=== PATIENT | female | born 1955 | race Caucasian/White ===

== ENCOUNTER → 2019-01-22 | Outpatient (CLI) | payer OTHER ==
[2014-10-31 16:25] VITALS: BP 131/75
[~2019-01-22] MED LIST: CLON0.5T PO; LEVO175T2 PO; LISI1TAB19 PO; ONDA4TAB10 PO; RANI-376 PO; SIMV40TA3 PO
--- NOTE | 2019-01-24 09:29 | RAD ---
DATE: 01/22/2019 EXAM: MAMMO HILDA SCREENING BILATERAL HISTORY: Routine screening COMPARISON: 07/14/2010, 06/27/2012, 01/21/2016 mammographic exams This study was interpreted with the benefit of Computerized Aided Detection (CAD). Breast Density: SCATTERED The breast parenchyma shows scattered fibroglandular densities. Breast parenchyma level B. FINDINGS: Small masses are present. These are stable. No new distortion, suspicious calcifications, or new masses. IMPRESSION: Stable BI-RADS CATEGORY: 1 NEGATIVE RECOMMENDED FOLLOW-UP: 12M 12 MONTH FOLLOW-UP PQRS compliance statement: Patient information was entered into a reminder system with a target due date in one year for the next mammogram. Mammography is a sensitive method for finding small breast cancers, but it does not detect them all and is not a substitute for careful clinical examination. A negative mammogram does not negate a clinically suspicious finding and should not result in delay in biopsying a clinically suspicious abnormality. "Our facility is accredited by the [employer] Mammography Program."
== END | disposition home or self-care (01) ==
LOC: MAMMO 13:18
PROVIDERS: ATTEND Family Medicine
DX: Z12.31 Encounter for screening mammogram for malignant neoplasm of breast (principal); N64.89 Other specified disorders of breast
CPT/HCPCS: 77063; 77067

== ENCOUNTER → 2019-10-06 | Outpatient (CLI) | payer OTHER ==
[2014-10-31 16:25] VITALS: BP 131/75
[~2019-10-06] MED LIST changes: +SIMV40TA18 PO; -SIMV40TA3 PO
--- NOTE | 2019-10-06 15:24 | RAD ---
EXAM: Bilateral knees, standing view; right knee, 2 views. HISTORY: Osteoarthritis. COMPARISON: None. FINDINGS: A standing frontal view both knees and lateral and sunrise views of the right knee are obtained. There is a right knee arthroplasty in expected position. There is a moderate right knee effusion and diffuse right knee soft tissue swelling. There is internal fixation of the left tibia, partially included on the [id number]. There is a healed proximal left fibular fracture. IMPRESSION: 1. Right knee arthroplasty in expected position. 2. Moderate right knee effusion and diffuse right knee soft tissue swelling. Electronically signed by: Jessica Paul MD (10/06/2019 3:21 PM) [facility]
--- NOTE | 2019-10-06 15:24 | RAD ---
EXAM: Bilateral knees, standing view; right knee, 2 views. HISTORY: Osteoarthritis. COMPARISON: None. FINDINGS: A standing frontal view both knees and lateral and sunrise views of the right knee are obtained. There is a right knee arthroplasty in expected position. There is a moderate right knee effusion and diffuse right knee soft tissue swelling. There is internal fixation of the left tibia, partially included on the [id number]. There is a healed proximal left fibular fracture. IMPRESSION: 1. Right knee arthroplasty in expected position. 2. Moderate right knee effusion and diffuse right knee soft tissue swelling. Electronically signed by: Jessica Paul MD (10/06/2019 3:21 PM) [facility]
== END ==
LOC: DXRAD 13:47
PROVIDERS: ATTEND Physician Assistant
DX: M25.461 Effusion, right knee (principal); M17.11 Unilateral primary osteoarthritis, right knee
CPT/HCPCS: 73560; 73565

== ENCOUNTER → 2019-10-29 | Outpatient (CLI) | payer OTHER ==
[2014-10-31 16:25] VITALS: BP 131/75
[~2019-10-29] MED LIST changes: -LISI1TAB19 PO; +LISI1TAB37 PO
--- NOTE | 2019-10-29 15:56 | RAD ---
AP and lateral right knee radiographs 10/29/2019 CLINICAL HISTORY: Post right knee replacement. AP and lateral digital radiographs of the right knee were obtained. Comparison study is dated 10/06/2019. The patient is post right TKA. The prosthetic components are intact. No fracture or dislocation is seen. IMPRESSION: Post right TKA. No acute osseous abnormality is seen. Electronically signed by: Geo Nguyen MD (10/29/2019 3:53 PM) [id number]
== END ==
LOC: DXRAD 11:43
PROVIDERS: ATTEND Physician Assistant
DX: Z96.651 Presence of right artificial knee joint (principal)
CPT/HCPCS: 73560

== ENCOUNTER → 2021-03-15 | Outpatient (CLI) | payer OTHER ==
[2014-10-31 16:25] VITALS: BP 131/75
--- NOTE | 2021-03-23 13:11 | RAD ---
Limited bone scan HISTORY: Right knee pain for 1.5 years 25.5 mCi of technetium 99m MDP was administered intravenously and spot views of the knees were obtain ed after appropriate delay. There is photopenia consistent with right knee total arthroplasty. There is increased activity around the femoral and tibial components. IMPRESSION: Abnormal increased activity around the femoral and tibial components suggesting loosening. Electronically signed by: Asael Dumont III, MD (03/23/2021 1:08 PM) [facility]
== END ==
LOC: NM 08:39
PROVIDERS: ATTEND Orthopaedic Surgery
DX: M25.561 Pain in right knee (principal); Z96.651 Presence of right artificial knee joint
CPT/HCPCS: 78300; A9503

== ENCOUNTER 2021-07-05 02:53 | Emergency (ER) | payer OTHER ==
[~2021-07-05] VITALS: Ht 175.3 cm; Wt 97.7 kg
[2021-07-05 03:01] VITALS: BP 137/64
--- NOTE | 2021-07-05 03:08 | PHYS DOC ---
Past History Past Medical History: Gallstones, GERD, High Cholesterol, Hypertension, Hypothyroid, Other Past Surgical History: Cholecystectomy, Tubal ligation, Other Alcohol Use: Occasionally Drug Use: None Adult General Chief Complaint Chief Complaint: MECHANICAL FALL HPI HPI Patient is a 65-year-old female presents to the emergency department with a chief complaint of low back pain after falling at home on her butt. States she is on crutches right now as she broke her fibula several weeks ago and was coming out of her bathroom at home almost back to her bed and got her crutches a nd feet, not been fell backwards onto her backside. Denies any head injuries, headache, lightheadedness, neck pain, chest pain, shortness of breath, abdominal pain, nausea, vomiting, diarrhea. States she was able to get up on her own. States this happened a couple hours ago and has taken a couple oxycodone since then. States that the pain is in her middle lower back, 6 out of 10, dull and achy in nature. Denies any numbness/weakness/tingling. Denies any trouble ambulating at baseline. Denies any trouble making urine since then. Review of Systems Review of Systems Constitutional: Denies fever or chills [] Eyes: Denies change in visual acuity, redness, or eye pain [] HENT: Denies nasal congestion or sore throat [] Respiratory: Denies cough or shortness of breath [] Cardiovascular: No additional information not addressed in HPI [] GI: Denies abdominal pain, nausea, vomiting, bloody stools or diarrhea [] : Denies dysuria or hematuria [] Musculoskeletal: Denies back pain or joint pain [] Integument: Denies rash or skin lesions [] Neurologic: Denies headache, focal weakness or sensory changes [] Endocrine: Denies polyuria or polydipsia [] All other systems were reviewed and found to be within normal limits, except as documented in this note. Allergies Allergies Allergies Coded Allergies Type Severity Reaction Last Updated Verified No Known Drug Allergies 07/05/21 No Physical Exam Physical Exam Constitutional: Well developed, well nourished, no acute distress, non-toxic appearance. [] HENT: Normocephalic, atraumatic, Neck: Normal range of motion, no tenderness, supple, no stridor. [] Cardiovascular:Heart rate regular rhythm, no murmur [] Lungs & Thorax: No respiratory distress Abdomen: no tenderness, Skin: Warm, dry, no erythema, no rash. [] Back: No midline tenderness throughout spine, with some bilateral paraspinal lumbar muscle tenderness and probable spasm, no step-offs, no deformities, no bruising Extremities: No tenderness, no cyanosis, no clubbing, ROM intact, no edema. [] Neurologic: Alert and oriented X 3, normal motor function, normal sensory function, able to sit, stand and walk at baseline, no focal deficits noted. [] Psychologic: Affect normal, judgement normal, mood normal. [] EKG EKG [] Radiology/Procedures Radiology/Procedures [] Heart Score C/O Chest Pain: No Risk Factors: Risk Factors: DM, Current or recent (<one month) smoker, HTN, HLP, family history of CAD, obesity. Risk Scores: Risk Factors: DM, Current or recent (<one month) smoker, HTN, HLP, family history of CAD, obesity. Course & Med Decision Making Course & Med Decision Making Patient is a 65-year-old female who presents with a chief complaint of low back pain after falling on her backside at home at 4 level on the carpet Vital signs not concerning. Physical exam noted above. Given ice and pain medicine. Imaging with no apparent new or acute osseous abnormalities with some chronic appearing deformities in L3 and L2 posteriorly. Discussed all findings with patient. Discussed symptom treatment at home. Advised to follow-up in the morning with primary care physician. Gave return precautions to the ED. Patient grateful, verbalized understanding and agreed with plan of discharge. [] Dragon Disclaimer Dragon Disclaimer This electronic medical record was generated, in whole or in part, using a voice recognition dictation system. Departure Departure: Impression: Primary Impression: Low back pain Disposition: HOME / SELF CARE / HOMELESS Condition: STABLE Referrals: CHELE MARTINEZ MD (PCP) Patient Instructions: Back Pain, Adult Additional Instructions: Fever coming into the emergency department tonight and allowing us to take care of you. Please read the attached information carefully to go over things we discussed. You can continue your home hydrocodone as needed and add ibuprofen and Tylenol and ice as well as needed. Please do not exceed 3000 mg of Tylenol daily as we discussed. Please be sure to not walk around using her crutches while taking your hydrocodone as this could make it easier for you to fall. Please follow-up in the morning with your primary care physician to set up a follow-up visit. Please come back with new or concerning symptoms as discussed. KILO JJ MD Jul 05, 2021 03:08
[2021-07-05] MEDS: KETOROLAC 30 MG/ML VIAL. IM ONE (03:27)
[2021-07-05] MEDS: ACETAMINOPHEN 500 MG TABLET PO ONE (03:28)
--- NOTE | 2021-07-05 04:02 | RAD ---
CT lumbar spine without contrast PQRS statement: CT scans at this facility use dose reduction including either automated exposure cont rol, iterative reconstructions, and /or weight based radiation dosing via mA and kV modification when appropriate to reduce radiation dose to as low as reasonably achievable. HISTORY: Fall, low back pain. FINDINGS: Lumbar vertebral body height and alignment intact. There is an acute anterior wedge T12 vertebral compression fracture with 25% height loss with acute f racture of the upper vertebral body, there is mild bone retropulsion of 2 mm. Separately at the lower T11 vertebral body there is heterogeneous bone sclerosis without obvious frac ture, this corresponded to some bony sclerosis that was present on prior MR lumbar spine from November 2019 and may be discogenic changes and chronic degenerative disc disease. No fracture of the lumbar spine. No spondylolysis defect. There are shallow disc bulges of the lumbar spine. Facet hypertrophy and spurring. These findings contribute to probable mild spinal canal steno sis at L2-L3 and L4-L5. There is severe left L5-S1 neural foraminal stenosis due to a bulky left late ral disc osteophyte facet spurring. IMPRESSION: 1. Acute anterior wedge T12 vertebral compression fracture. See above. 2. No acute osseous injury of the lumbar spine. 3. Lumbar disc disease as described above. 4. Lower T11 vertebral body demonstrates heterogeneous bony sclerosis which corresponds to some bony stenosis and was present on the right lumbar spine imaging from November 2019. The extent of bony scler osis on the current exam is somewhat greater compared to the prior MRI study. This may be discogenic bony sclerosis which has progressed from progressive disc disease. An indolent pathologic osteoblasti c bony lesion is a less likely consideration. Correlation with bone scan may be of benefit. Electronically signed by: Jordin Blake MD (07/05/2021 3:59 AM) [facility]
== END 2021-07-05 04:03 | disposition home or self-care (01) ==
LOC: ER 02:53
DX: M54.59 Other low back pain (principal); K21.9 Gastro-esophageal reflux disease without esophagitis; E78.00 Pure hypercholesterolemia, unspecified; I10 Essential (primary) hypertension; E03.9 Hypothyroidism, unspecified; Z90.49 Acquired absence of other specified parts of digestive tract; Z98.51 Tubal ligation status; W18.39XA Other fall on same level, initial encounter; Y93.89 Activity, other specified; Y92.098 Other place in other non-institutional residence as the place of occurrence of the external cause; Y99.8 Other external cause status
CPT/HCPCS: 72131; 96372; 99284; J1885